=== PATIENT | female | born 1980 | race Caucasian/White ===

== ENCOUNTER → 2018-06-17 11:38 | Outpatient (CLI) | payer OTHER, SELFPAY | PROVIDERS: Visit Provider Physician Assistant | DX: N30.90 Cystitis, unspecified without hematuria (principal) | CPT/HCPCS: 87086 ==

== ENCOUNTER → 2019-07-26 11:55 | Outpatient (CLI) | payer OTHER, SELFPAY | DX: Z23 Encounter for immunization (principal) | CPT/HCPCS: 90471; 90686 ==

== ENCOUNTER 2020-04-01 16:10 | Emergency (ER) | payer OTHER, SELFPAY ==
[2020-04-01 16:14] VITALS: BP 161/91; PULSE 85; RESP 20; TEMP 36.6; O2SAT 99
[2020-04-01] MEDS: TET,DIPH,PERTUSS(ACELL),VAC/PF 0.5 ML SYRINGE IM (17:40)
--- NOTE | 2020-04-01 17:49 | ED_ITS ---
HPI - General Adult <MARI Real - Last Filed: 04/01/20 21:21> General Chief complaint: Environmental Exposure Stated complaint: needle stick Time Seen by Provider: 04/01/20 17:05 Source: patient Mode of arrival: Ambulatory History of Present Illness HPI narrative: 39yo female presents to the emergency department for a work- related needle stick. She states she was giving insulin to a patient who has known hepatitis-C, the insulin was 2 units and the injection was basically complete but the needle punctured through the skin of the patient which then punctured the nurse's glove and resulted in a superficial puncture of her skin of finger tip. She denies any insulin injection with a puncture. Patient denies any history of medical issues such as hepatitis or HIV. She states she is unsure of last Tdap. Patient denies any other symptoms such as fevers, chills, nausea, vomiting, diarrhea, or other concerns. Patient states she irrigated the wound extensively after incident and wash her hands with soap and water. Related Data Previous Rx's Medication Instructions Recorded dolutegravir 50 mg PO DAILY 10 Days #10 tab 04/01/20 emtricitabine-tenofovir (TDF) 1 tab PO DAILY 10 Days #10 tab 04/01/20 [Truvada] ondansetron 4 mg PO Q6H PRN #10 tab 04/01/20 Allergies Allergy/AdvReac Type Severity Reaction Status Date / Time No Known Drug Allergies Allergy Unverified 06/17/18 10:47 Review of Systems <MARI Real - Last Filed: 04/01/20 21:21> Review of Systems Narrative: REVIEW OF SYSTEMS: GENERAL: Denies fever or chills. HENT: Denies head trauma. EYE: Denies double vision or vision loss. CARDIOVASCULAR: Denies syncope. MUSCULOSKELETAL: Denies weakness, or deformities. INTEGUMENTARY: Complains of puncture wound to finger, see HPI. NEURO: Denies numbness or tingling. Patient History <MARI Real - Last Filed: 04/01/20 21:21> Medical History No significant medical problems (Acute) Social History Smoking Status: Never smoker Smoking Status: Never smoker Exam <MARI Real - Last Filed: 04/01/20 21:21> Initial Vital Signs Initial Vital Signs: Vital Signs Temperature 97.9 F 04/01/20 16:14 Pulse Rate 85 04/01/20 16:14 Respiratory Rate 20 04/01/20 16:14 Blood Pressure 161/91 H 04/01/20 16:14 Pulse Oximetry 99 04/01/20 16:14 PHYSICAL EXAMINATION: GENERAL: Well groomed, alert, and cooperative. Answers questions promptly and appropriately. Vital signs noted. HENT: Normocephalic, atraumatic. RESPIRATORY: Normal respiratory rate, trachea midline, airway patent. No stridor, nasal flaring or accessory muscle use. MUSCULOSKELETAL: Normal gait and coordination. Equal tone and mass bilaterally. EXTREMITIES: CMS intact. Moves all extremities. SKIN: Warm, dry, soft, appropriate color for ethnicity. Small puncture wound seen to the middle of left index finger. No bleeding, ecchymosis, or erythema. NEURO: Alert and Oriented X 3. Good coordination. PSYCH: Appropriate affect and mood. <Thanh Goddard DO - Last Filed: 04/01/20 21:43> Initial Vital Signs Initial Vital Signs: Vital Signs Temperature 97.9 F 04/01/20 16:14 Pulse Rate 85 04/01/20 16:14 Respiratory Rate 20 04/01/20 16:14 Blood Pressure 161/91 H 04/01/20 16:14 Pulse Oximetry 99 04/01/20 16:14 Course <MARI Real - Last Filed: 04/01/20 21:21> Course Course Narrative: Medication was given via pre packs from [facility] given patient is an employee.. I discussed with patient testing for hepatitis-B, C, and HIV. Patient consented. Was discussed with patient prophylactic treatment of HIV, PEP today. Pharmacy was contacted. Orders Ordered: ED Orders 04/01/20 17:58 HIV 1 & 2 Ab/Ag 4th Gen Combo Stat Hepatic (Liver) Panel Stat Hepatitis C Virus Antibody Stat 04/01/20 18:14 Complete Blood Count AUTO DIFF Stat Comprehensive Metabolic Panel Stat Discontinued Medications Diphtheria/Tetanus/Acell Pertussis (Adacel) 0.5 ml IM .ONCE ONE Stop: 04/01/20 17:16 Last Admin: 04/01/20 17:40 Dose: 0.5 ml Documented by: RENEE Dolutegravir Sodium (Tivicay) 50 mg PO NOW ONE Stop: 04/01/20 18:05 Dolutegravir Sodium (Tivicay Prepack) 1 prepack MISC SEEINSTR ONE Stop: 04/01/20 18:58 Emtricitabine/Tenofovir (Truvada 200 Mg-300 Mg Tablet) 1 each PO NOW ONE Stop: 04/01/20 18:05 Emtricitabine/Tenofovir (Truvada Prepack) 1 prepack MISC SEEINSTR ONE Stop: 04/01/20 18:58 Ondansetron HCl (Zofran Odt) 4 mg SL NOW ONE Stop: 04/01/20 18:05 Last Admin: 04/01/20 19:20 Dose: 4 mg Documented by: RENEE Vital Signs Vital signs: Vital Signs - 8 hr 04/01/20 16:14 Temperature 97.9 F Pulse Rate 85 Respiratory Rate 20 Blood Pressure 161/91 H Pulse Oximetry 99 <Thanh Goddard DO - Last Filed: 04/01/20 21:43> Orders Ordered: ED Orders 04/01/20 17:58 HIV 1 & 2 Ab/Ag 4th Gen Combo Stat Hepatic (Liver) Panel Stat Hepatitis C Virus Antibody Stat 04/01/20 18:14 Complete Blood Count AUTO DIFF Stat Comprehensive Metabolic Panel Stat Discontinued Medications Diphtheria/Tetanus/Acell Pertussis (Adacel) 0.5 ml IM .ONCE ONE Stop: 04/01/20 17:16 Last Admin: 04/01/20 17:40 Dose: 0.5 ml Documented by: RENEE Dolutegravir Sodium (Tivicay) 50 mg PO NOW ONE Stop: 04/01/20 18:05 Dolutegravir Sodium (Tivicay Prepack) 1 prepack MISC SEEINSTR ONE Stop: 04/01/20 18:58 Emtricitabine/Tenofovir (Truvada 200 Mg-300 Mg Tablet) 1 each PO NOW ONE Stop: 04/01/20 18:05 Emtricitabine/Tenofovir (Truvada Prepack) 1 prepack MISC SEEINSTR ONE Stop: 04/01/20 18:58 Ondansetron HCl (Zofran Odt) 4 mg SL NOW ONE Stop: 04/01/20 18:05 Last Admin: 04/01/20 19:20 Dose: 4 mg Documented by: RENEE Vital Signs Vital signs: Vital Signs - 8 hr 04/01/20 16:14 Temperature 97.9 F Pulse Rate 85 Respiratory Rate 20 Blood Pressure 161/91 H Pulse Oximetry 99 Medical Decision Making <MARI Real - Last Filed: 04/01/20 21:21> Medical Records Medical records reviewed: Yes I reviewed the patient's medical records. Lab Data Lab results reviewed: Yes I reviewed the patient's lab results. Result diagrams: 04/01/20 18:14 04/01/20 18:14 Labs: Lab Results 04/01/20 04/01/20 04/01/20 Range/Units 17:58 17:58 18:14 WBC 11.0 (4.5-11.0) X10^3/uL RBC 4.79 (4.0-5.2) X10^6/uL Hgb 14.1 (12.0-16.0) g/dL Hct 42.1 (36-46) % MCV 87.9 (80-100) fL MCH 29.4 (26-34) PG MCHC 33.4 (30-36) % RDW 12.6 (11.6-14.8) % Plt Count 411 H (150-400) X10^3/uL Neut % (Auto) 64.6 (50-75) % Lymph % (Auto) 25.1 (25-40) % Sanders % (Auto) 6.2 (3-14) % Eos % (Auto) 3.5 (2-4) % Baso % (Auto) 0.6 (0-2) % Neut # (Auto) 7100 H (4274-2311) /uL Lymph # (Auto) 2800 (0600-2951) /uL Sanders # (Auto) 700 (0-900) /uL Eos # (Auto) 400 (0-450) /uL Baso # (Auto) 100 (0-100) /uL Sodium (137-145) mmol/L Potassium (3.4-5.1) mmol/L Chloride (98-107) mmol/L Carbon Dioxide (22-32) mmol/L BUN (7-17) mg/dL Creatinine (0.52-1.04) mg/dL Estimated GFR (>60) mL/min BUN/Creatinine Ratio (6-22) Glucose (70-100) mg/dL Calcium (8.4-10.2) mg/dL Total Bilirubin 0.5 (0.2-1.3) mg/dL Conjugated Bilirubin 0.0 (0.0-0.3) md/dL Unconjugated Bilirubin 0.4 (0.0-1.1) mg/dL AST 27 (14-36) IU/L ALT 19 (<35) IU/L Alkaline Phosphatase 79 (38-126) U/L Total Protein 7.9 (6.3-8.2) g/dL Albumin 4.5 (3.5-5.0) g/dL Globulin 3.4 (1.7-4.1) g/dL Albumin/Globulin Ratio 1.3 (1.0-2.8) Hepatitis C Antibody Negative (NEGATIVE) s/c HIV 1&2 Ab/P24 Ag 4thGn Negative (NEGATIVE) 04/01/ Range/Units 18:14 WBC (4.5-11.0) X10^3/uL RBC (4.0-5.2) X10^6/uL Hgb (12.0-16.0) g/dL Hct (36-46) % MCV (80-100) fL MCH (26-34) PG MCHC (30-36) % RDW (11.6-14.8) % Plt Count (150-400) X10^3/uL Neut % (Auto) (50-75) % Lymph % (Auto) (25-40) % Sanders % (Auto) (3-14) % Eos % (Auto) (2-4) % Baso % (Auto) (0-2) % Neut # (Auto) (0585-0788) /uL Lymph # (Auto) (7665-8276) /uL Sanders # (Auto) (0-900) /uL Eos # (Auto) (0-450) /uL Baso # (Auto) (0-100) /uL Sodium 138 (137-145) mmol/L Potassium 3.8 (3.4-5.1) mmol/L Chloride 103 (98-107) mmol/L Carbon Dioxide 25 (22-32) mmol/L BUN 12 (7-17) mg/dL Creatinine 0.67 (0.52-1.04) mg/dL Estimated GFR > 60.0 (>60) mL/min BUN/Creatinine Ratio 17.9 (6-22) Glucose 94 (70-100) mg/dL Calcium 9.2 (8.4-10.2) mg/dL Total Bilirubin 0.6 (0.2-1.3) mg/dL Conjugated Bilirubin (0.0-0.3) md/dL Unconjugated Bilirubin (0.0-1.1) mg/dL AST 29 (14-36) IU/L ALT 20 (<35) IU/L Alkaline Phosphatase 78 (38-126) U/L Total Protein 8.4 H (6.3-8.2) g/dL Albumin 4.7 (3.5-5.0) g/dL Globulin 3.7 (1.7-4.1) g/dL Albumin/Globulin Ratio 1.3 (1.0-2.8) Hepatitis C Antibody (NEGATIVE) s/c HIV 1&2 Ab/P24 Ag 4thGn (NEGATIVE) Point of Care Testing Test Results Negative Point of care testing: Point of Care Testing Test Results Negative MDM Narrative Medical decision making narrative: History and examination reveal a 39-year-old female who suffered a subcutaneous needle stick during administration of insulin. Source patient has known hepatitis-C. Unknown hepatitis-B or HIV status of source patient. Current patient without history of hepatitis or HIV. Tdap was updated, patient reported up-to-date hepatitis-B vaccinations. Patient requesting PEP, prescriptions order per protocol after negative test. Patient was counseled extensively to follow-up with employee health, call them tomorrow to schedule follow-up. Return precautions were given for new or worsening symptoms. Patient agreed to plan of care verbalized understanding. <Thanh Goddard, DO - Last Filed: 04/01/20 21:43> Lab Data Labs: Lab Results 04/01/20 04/01/20 04/01/20 Range/Units 17:58 17:58 18:14 WBC 11.0 (4.5-11.0) X10^3/uL RBC 4.79 (4.0-5.2) X10^6/uL Hgb 14.1 (12.0-16.0) g/dL Hct 42.1 (36-46) % MCV 87.9 (80-100) fL MCH 29.4 (26-34) PG MCHC 33.4 (30-36) % RDW 12.6 (11.6-14.8) % Plt Count 411 H (150-400) X10^3/uL Neut % (Auto) 64.6 (50-75) % Lymph % (Auto) 25.1 (25-40) % Sanders % (Auto) 6.2 (3-14) % Eos % (Auto) 3.5 (2-4) % Baso % (Auto) 0.6 (0-2) % Neut # (Auto) 7100 H (5010-8754) /uL Lymph # (Auto) 2800 (2654-2875) /uL Sanders # (Auto) 700 (0-900) /uL Eos # (Auto) 400 (0-450) /uL Baso # (Auto) 100 (0-100) /uL Sodium (137-145) mmol/L Potassium (3.4-5.1) mmol/L Chloride (98-107) mmol/L Carbon Dioxide (22-32) mmol/L BUN (7-17) mg/dL Creatinine (0.52-1.04) mg/dL Estimated GFR (>60) mL/min BUN/Creatinine Ratio (6-22) Glucose (70-100) mg/dL Calcium (8.4-10.2) mg/dL Total Bilirubin 0.5 (0.2-1.3) mg/dL Conjugated Bilirubin 0.0 (0.0-0.3) md/dL Unconjugated Bilirubin 0.4 (0.0-1.1) mg/dL AST 27 (14-36) IU/L ALT 19 (<35) IU/L Alkaline Phosphatase 79 (38-126) U/L Total Protein 7.9 (6.3-8.2) g/dL Albumin 4.5 (3.5-5.0) g/dL Globulin 3.4 (1.7-4.1) g/dL Albumin/Globulin Ratio 1.3 (1.0-2.8) Hepatitis C Antibody Negative (NEGATIVE) s/c HIV 1&2 Ab/P24 Ag 4thGn Negative (NEGATIVE) 04/01/20 Range/Units 18:14 WBC (4.5-11.0) X10^3/uL RBC (4.0-5.2) X10^6/uL Hgb (12.0-16.0) g/dL Hct (36-46) % MCV (80-100) fL MCH (26-34) PG MCHC (30-36) % RDW (11.6-14.8) % Plt Count (150-400) X10^3/uL Neut % (Auto) (50-75) % Lymph % (Auto) (25-40) % Sanders % (Auto) (3-14) % Eos % (Auto) (2-4) % Baso % (Auto) (0-2) % Neut # (Auto) (6973-2082) /uL Lymph # (Auto) (5513-7639) /uL Sanders # (Auto) (0-900) /uL Eos # (Auto) (0-450) /uL Baso # (Auto) (0-100) /uL Sodium 138 (137-145) mmol/L Potassium 3.8 (3.4-5.1) mmol/L Chloride 103 (98-107) mmol/L Carbon Dioxide 25 (22-32) mmol/L BUN 12 (7-17) mg/dL Creatinine 0.67 (0.52-1.04) mg/dL Estimated GFR > 60.0 (>60) mL/min BUN/Creatinine Ratio 17.9 (6-22) Glucose 94 (70-100) mg/dL Calcium 9.2 (8.4-10.2) mg/dL Total Bilirubin 0.6 (0.2-1.3) mg/dL Conjugated Bilirubin (0.0-0.3) md/dL Unconjugated Bilirubin (0.0-1.1) mg/dL AST 29 (14-36) IU/L ALT 20 (<35) IU/L Alkaline Phosphatase 78 (38-126) U/L Total Protein 8.4 H (6.3-8.2) g/dL Albumin 4.7 (3.5-5.0) g/dL Globulin 3.7 (1.7-4.1) g/dL Albumin/Globulin Ratio 1.3 (1.0-2.8) Hepatitis C Antibody (NEGATIVE) s/c HIV 1&2 Ab/P24 Ag 4thGn (NEGATIVE) Point of Care Testing Test Results Negative Point of care testing: Point of Care Testing Test Results Negative Discharge Plan Departure Patient Disposition: Home Clinical Impression: Needle stick injury Discharge Date/Time: 04/01/20 19:35 Activity Restrictions/Additional Instructions: Thank you for entrusting me with your care today. As discussed, please call [facility] tomorrow to schedule a follow-up appointment. I have started you on post exposure prophylaxis therapy for HIV, you may discontinue that went source patient has tested negative for HIV, if the patient is positive, you will need to continue these for 28 days. I have given you a script for 10 days is these medications can be expensive and the additional regimen can be continued if patient is confirmed positive. These medications can make you nauseated, I prescribed you ondansetron for this. These medications were sent to [facility] in [place]. Please return emergency department for any new or worsening symptoms. Prescriptions: New Truvada 200-300 mg tablet 1 tab PO DAILY 10 Days Qty: 10 RF: 0 dolutegravir 50 mg tablet 50 mg PO DAILY 10 Days Qty: 10 RF: 0 ondansetron 4 mg tablet,disintegrating 4 mg PO Q6H PRN (Reason: nausea and vomiting) Qty: 10 RF: 0 Referrals: Ny Cody MD [Primary Care Provider] - <Thanh Goddard, DO - Last Filed: 04/01/20 21:43> Cosign ED Attending Cosignature Attestation: Dr Goddard Co-Sign Statement: I was av ailable for consultation during this patient's emergency department visit. This chart is signed by myself for administrative purposes only. I did not have direct contact with this patient during this visit. They were seen independently by the APC.
[2020-04-01 18:24] LABS: Add Manual Diff / Slide Review NO; Basophils Absolute Auto 100 /uL (0-100); Basophils Percent Auto 0.6 % (0-2); Eosinophils Absolute Auto 400 /uL (0-450); Eosinophils Percent Auto 3.5 % (2-4); Hematocrit 42.1 % (36-46); Hemoglobin 14.1 g/dL (12.0-16.0); Lymphocytes Absolute Auto 2800 /uL (1100-4500); Lymphocytes Percent Auto 25.1 % (25-40); Mean Corpuscular HGB Conc 33.4 % (30-36); Mean Corpuscular Hemoglobin 29.4 PG (26-34); Mean Corpuscular Volume 87.9 fL (80-100); Monocytes Absolute Auto 700 /uL (0-900); Monocytes Percent Auto 6.2 % (3-14); Neutrophils Absolute Auto 7100 /uL (1500-7000); Neutrophils Percent Auto 64.6 % (50-75); Platelet Count 411 X10^3/uL (150-400); Red Blood Cell Count 4.79 X10^6/uL (4.0-5.2); Red Cell Distribution Width 12.6 % (11.6-14.8)
[2020-04-01 18:29] LABS: Alanine Aminotransferase 19 IU/L (<35); Albumin 4.5 g/dL (3.5-5.0); Albumin Globulin Ratio 1.3 (1.0-2.8); Alkaline Phosphatase 79 U/L (38-126); Aspartate Aminotransferase 27 IU/L (14-36); Bilirubin Total 0.5 mg/dL (0.2-1.3); Bilirubin Unconjugated 0.4 mg/dL (0.0-1.1); Globulin 3.4 g/dL (1.7-4.1); HEMOLYSIS < 15 (0-50); Total Protein 7.9 g/dL (6.3-8.2)
[2020-04-01 18:41] LABS: Alanine Aminotransferase 20 IU/L (<35); Albumin 4.7 g/dL (3.5-5.0); Albumin Globulin Ratio 1.3 (1.0-2.8); Alkaline Phosphatase 78 U/L (38-126); Aspartate Aminotransferase 29 IU/L (14-36); BUN Creatinine Ratio 17.9 (6-22); Bilirubin Total 0.6 mg/dL (0.2-1.3); Blood Urea Nitrogen 12 mg/dL (7-17); Calcium 9.2 mg/dL (8.4-10.2); Carbon Dioxide 25 mmol/L (22-32); Chloride 103 mmol/L (98-107); Estimated Glomerular Filt Rate > 60.0 mL/min (>60); Globulin 3.7 g/dL (1.7-4.1); Glucose 94 mg/dL (70-100); HEMOLYSIS 21 (0-50); Potassium 3.8 mmol/L (3.4-5.1); Sodium 138 mmol/L (137-145); Total Protein 8.4 g/dL (6.3-8.2)
[2020-04-01] MEDS: ONDANSETRON 4 MG ODT SL (19:20)
[2020-04-01 19:37] LABS: HIV 1 & 2 Ab/Ag 4th Gen Combo NEGATIVE (NEGATIVE); Hep C Virus Ab w/Reflex Quant NEGATIVE s/c (NEGATIVE)
[2020-04-03 07:36] LABS: Hepatitis B Surf Ab Qualitativ Reactive (.)
== END 2020-04-01 19:35 | disposition home or self-care (01) ==
PROVIDERS: Emergency Provider Nurse Practitioner; PCP Student in an Organized Health Care Education/Training Program
DX: Z77.21 Contact with and (suspected) exposure to potentially hazardous body fluids (principal); Y99.0 Civilian activity done for income or pay; Z23 Encounter for immunization
CPT/HCPCS: 36415; 80053; 80076; 81025; 85025; 86706; 86803; 87389; 90471; 99283; 90715; A9270

== ENCOUNTER → 2020-05-05 08:08 | Outpatient (CLI) | payer OTHER, SELFPAY ==
--- NOTE | 2020-05-05 | DI.US.S_ITS ---
PROCEDURE: US PELVIC COMPLETE INDICATIONS: PELVIC MASS TECHNIQUE: Real-time scanning was performed of the pelvic organs, with image documentation. Additional endovaginal scanning was necessary due to incomplete visualization of the adnexal and endometrial structures by transabdominal scanning. COMPARISON: None. FINDINGS: Transabdominal scanning: Limited scanning through the kidneys shows no hydronephrosis. No pathologic free abdominal or pelvic fluid. Endovaginal scanning: Uterus: The uterus is enlarged measuring 19.7 x 13.4 x 16.3 cm. The endometrial stripe is not seen. There is a posterior intramural fibroid seen inferiorly that measures 9 x 6.7 x 7.7 cm. Ovaries: The right ovary measures 3.2 x 3.1 x 3.5 cm. Within the right ovary, there are 2 complex cysts, which measure up to 2.4 cm and up to 2.2 cm, respectively. The left ovary is not seen. No adnexal masses can be seen on either side. IMPRESSION: Enlarged uterus, with a prominent fibroid seen posteriorly that measures up to 9 cm. Abnormal right ovary, with 2 complex cysts seen within it. These most likely represent hemorrhagic cysts. At clinical discretion, a followup pelvic ultrasound is suggested in 6 weeks to assure resolution/ improvement. Nonvisualization of the left ovary. No adnexal masses are seen. Dictated by: Chandler Wu M.D. on 05/05/2020 at 9:59 Approved by: Chandler Wu M.D. on 05/05/2020 at 10:00
== END ==
PROVIDERS: PCP Student in an Organized Health Care Education/Training Program; Referring Provider Student in an Organized Health Care Education/Training Program; Visit Provider Student in an Organized Health Care Education/Training Program
DX: D25.1 Intramural leiomyoma of uterus (principal); N85.2 Hypertrophy of uterus; N83.291 Other ovarian cyst, right side
CPT/HCPCS: 76830; 76856

== ENCOUNTER → 2020-05-22 | Outpatient (CLI) | payer OTHER, SELFPAY | PROVIDERS: PCP Student in an Organized Health Care Education/Training Program; Referring Provider Internal Medicine; Visit Provider Internal Medicine | DX: Z23 Encounter for immunization (principal) | CPT/HCPCS: 90471; 90686 ==

== ENCOUNTER → 2020-06-16 10:42 | Outpatient (CLI) | payer OTHER, SELFPAY ==
--- NOTE | 2020-06-16 | DI.US.S_ITS ---
PROCEDURE: US PELVIC COMPLETE INDICATIONS: 6 week follow up TECHNIQUE: Real-time scanning was performed of the pelvic organs, with image documentation. Additional endovaginal scanning was necessary due to incomplete visualization of the adnexal and endometrial structures by transabdominal scanning. COMPARISON: [facility], , US PELVIC COMPLETE, 05/05/2020, 8:34. FINDINGS: Transabdominal scanning: Limited scanning through the kidneys shows no hydronephrosis. No pathologic free abdominal or pelvic fluid. Endovaginal scanning: Uterus: Uterus is enlarged in size at 8.0 x 16.0 x 20.2 cm. The endometrium cannot be visualized as a discrete structure due to distortion by multiple superimposed uterine fibroids. Multiple fibroids are present the largest of which measures 12.6 x 11.4 x 9.0 cm centered on the right at the anterior aspect of the uterus but also extending contiguously into the posterior 3rd. The exact boundaries of the fibroid versus normal myometrium is distorted and difficult to delineate.. Ovaries: The right ovary measures 2.5 x 3.3 x 4.2 cm and the left measures 2.7 x 1.8 x 3.4 cm. IMPRESSION: No ovarian cysts are seen at the right ovary. Previously present complex cysts in that area have resolved. The quality of visualization of the uterus is very limited due to a dominant large presumed fibroid, and the endometrial lining could not be visualized accurately. Depending on the clinical status follow-up by pelvic MRI may be warranted. The presence or absence of an endometrial neoplasm would not be accurately detected by this examination. Dictated by: Chi Umana M.D. on 06/16/2020 at 13:54 Approved by: Chi Umana M.D. on 06/16/2020 at 14:13
== END ==
PROVIDERS: PCP Student in an Organized Health Care Education/Training Program; Referring Provider Student in an Organized Health Care Education/Training Program; Visit Provider Student in an Organized Health Care Education/Training Program
DX: N83.201 Unspecified ovarian cyst, right side (principal); D25.9 Leiomyoma of uterus, unspecified
CPT/HCPCS: 76830; 76856

== ENCOUNTER → 2020-07-02 15:28 | Outpatient (CLI) | payer OTHER, SELFPAY ==
--- NOTE | 2020-07-02 | DI.MRI.S_ITS ---
PROCEDURE: MR PELVIS WO/W CON INDICATIONS: Leiomyoma of uterus, unspecified TECHNIQUE: Coronal HASTE, sagittal breath-hold T2 FSE; axial T1 FSE with and without fat saturation through the pelvis. Optional long- and short-axis uterine nonbreath-hold T2 FSE through the uterus. Sagittal or axial dynamic VIBE during administration of contrast. Post-contrast axial or coronal VIBE/2-D FLASH with fat saturation from the iliac crests to the symphysis. Optional diffusion weighted imaging and ADC may be performed. COMPARISON: [facility], US, US PELVIC COMPLETE, 06/16/2020, 10:53. FINDINGS: Image quality: Excellent. Uterus: Anteverted uterus is massively enlarged with several fibroids measuring 20.1 x 15.8 x 13.8 cm. Uterus extends to the level of the umbilicus. No suspicious enhancement or restricted diffusion. For example: -Large anterior fundal intramural fibroid measuring 15.8 x 15.2 x 10.2 cm. -Large intramural fibroid posterior lower uterine segment measures 8.8 x 8.2 x 7.8 cm. Endometrium is normal in thickness measuring 0.9 cm. Junctional zone is normal in thickness at 12 mm or less. Adnexa: Both ovaries are normal in size, without suspicious cystic or solid lesions. Granulated left ovarian cyst most compatible with a corpus luteum or resolving hemorrhagic cyst. Small ovarian follicles. Urinary system: Bladder is decompressed. Distal ureters are non distended. Nodes and vessels: No pelvic or inguinal adenopathy by size criteria. Iliac vessels are normal in size. Bowel and peritoneum: Trace physiologic fluid. Inferior colon and small bowel loops are normal in caliber. Soft tissues: No inguinal hernias. No findings of pelvic floor incompetence in the absence of provocation. Bones: Marrow demonstrates normal overall signal. IMPRESSION: 1. Massively enlarged fibroid uterus extending to the level of the umbilicus measuring 20.1 cm. 2. Ovaries are within normal limits. No suspicious mass. 3. No endometrial thickening. Dictated by: Obi Perales M.D. on 07/02/2020 at 17:05 Approved by: Obi Perales M.D. on 07/02/2020 at 17:17
== END ==
PROVIDERS: PCP Student in an Organized Health Care Education/Training Program; Referring Provider Student in an Organized Health Care Education/Training Program; Visit Provider Student in an Organized Health Care Education/Training Program
DX: D25.1 Intramural leiomyoma of uterus (principal)
CPT/HCPCS: 72197; A9579

== ENCOUNTER → 2020-08-14 09:08 | Outpatient (CLI) | payer OTHER, SELFPAY ==
[2020-08-14] MEDS: COVID-19 VACC(MODERNA-1)/PF 100 MCG/0.5 ML VIAL IM (09:22)
== END ==
PROVIDERS: PCP Student in an Organized Health Care Education/Training Program; Visit Provider Internal Medicine
DX: Z23 Encounter for immunization (principal)
CPT/HCPCS: 0011A; 91301

== ENCOUNTER → 2020-09-10 09:08 | Outpatient (CLI) | payer OTHER, SELFPAY ==
[2020-09-10] MEDS: COVID-19 VACC #2, MRNA(MOD) 100 MCG/0.5 ML VIAL IM (09:14)
== END ==
PROVIDERS: PCP Student in an Organized Health Care Education/Training Program; Visit Provider Internal Medicine
DX: Z23 Encounter for immunization (principal)
CPT/HCPCS: 0012A; 91301

== ENCOUNTER → 2021-04-15 13:12 | Outpatient (CLI) | payer OTHER, SELFPAY ==
[2021-04-15 14:13] LABS: COVID19 -Nasal RAPID Negative (Negative)
== END ==
PROVIDERS: PCP Student in an Organized Health Care Education/Training Program; Visit Provider Specialist
DX: Z01.812 Encounter for preprocedural laboratory examination (principal); Z20.822 Contact with and (suspected) exposure to COVID-19
CPT/HCPCS: 87635; C9803

== ENCOUNTER → 2021-06-08 13:41 | Outpatient (CLI) | payer OTHER, SELFPAY | PROVIDERS: PCP Student in an Organized Health Care Education/Training Program; Referring Provider Internal Medicine; Visit Provider Internal Medicine | DX: Z23 Encounter for immunization (principal) | CPT/HCPCS: 90471; 90686 ==

== ENCOUNTER → 2021-06-19 08:21 | Outpatient (CLI) | payer OTHER, SELFPAY ==
[2021-06-19] MEDS: COVID-19 VACC #3, MRNA(MOD) 50 MCG/0.25 ML VIAL IM (08:25)
== END ==
PROVIDERS: PCP Student in an Organized Health Care Education/Training Program; Visit Provider Internal Medicine
DX: Z23 Encounter for immunization (principal)
CPT/HCPCS: 0013A; 91301

== ENCOUNTER → 2022-04-02 15:37 | Outpatient (CLI) | payer OTHER, SELFPAY ==
--- NOTE | 2022-04-02 | DI.CT.S_ITS ---
PROCEDURE: CT SINUS SCREEN WO CON INDICATIONS: Anosmia/chronic pansinusitis/headache TECHNIQUE: Noncontrast 3.0 mm axial images acquired from the frontal sinuses to the mid-sella, with coronal and sagittal reformats. For radiation dose reduction, the following was used: automated exposure control, adjustment of mA and/or kV according to patient size. COMPARISON: None. FINDINGS: Image quality: Excellent. Maxillary Sinuses: There is at least moderate left-sided and moderate right-sided mucosal thickening seen. There is demineralization of the medial simon of the maxillary sinuses. Ethmoid Air Cells: There is moderate to prominent costal thickening seen within the ethmoid air cells. The simon of the ethmoid air cells are demineralized. Sphenoid Sinuses: There is moderate mucosal thickening seen within both sphenoid sinuses. No definite bony remodeling change can be seen. Frontal Sinuses: No bony remodeling or destruction. [id number] mucosal thickening is seen within the inferior medial frontal sinuses. Ostiomeatal Complexes: The ostiomeatal complexes are nearly completely opacified and are demineralized. Miscellaneous: Visualized intra-orbital contents are normal. There is a large right-sided ricardo bullosa is seen, with complete opacification. Mild abnormal soft tissue can be seen within the superior nasal cavity. There is [id number] leftward nasal septal deviation. IMPRESSION: Widespread paranasal sinus disease can be seen. Areas of bony remodeling/demineralization are seen, which are consistent with chronic sinusitis. There is a large right ricardo bullosa, which is opacified with soft tissue. There is associated [id number] leftward nasal septal deviation. Abnormal soft tissue can be seen within the upper nasal cavity, which is attributed to polyp disease. Dictated by: Chandler Wu M.D. on 04/02/2022 at 14:55 Approved by: Chandler Wu M.D. on 04/02/2022 at 14:58
== END ==
PROVIDERS: PCP Student in an Organized Health Care Education/Training Program; Referring Provider Otolaryngology; Visit Provider Otolaryngology
DX: J32.4 Chronic pansinusitis (principal); R43.0 Anosmia; J34.89 Other specified disorders of nose and nasal sinuses; R51.9 Headache, unspecified; J34.2 Deviated nasal septum; J34.3 Hypertrophy of nasal turbinates
CPT/HCPCS: 70486

== ENCOUNTER → 2022-08-11 12:08 | Outpatient (CLI) | payer OTHER, SELFPAY | PROVIDERS: PCP Student in an Organized Health Care Education/Training Program; Referring Provider Internal Medicine; Visit Provider Internal Medicine | DX: Z23 Encounter for immunization (principal) | CPT/HCPCS: 90471; 90686 ==

== ENCOUNTER → 2023-03-10 14:03 | Outpatient (CLI) | payer OTHER, SELFPAY ==
--- NOTE | 2023-03-10 | DI.MG.S_ITS ---
BILATERAL DIGITAL SCREENING MAMMOGRAM 3D/2D WITH CAD: 03/10/2023 CLINICAL: Baseline exam. Routine screening. No prior exams were available for comparison. There are scattered areas of fibroglandular density in both breasts (category b / 25%-50% glandular tissue). Current study was also evaluated with a Computer Aided Detection (CAD) system. There is a 0.8 cm mass in the left breast at 2 o'clock posterior depth. No other significant masses, calcifications, or other findings are seen in either breast. IMPRESSION: INCOMPLETE: NEEDS ADDITIONAL IMAGING EVALUATION The 0.8 cm mass in the left breast resembles a cyst and is indeterminate. Additional views with possible ultrasound are recommended. Based on the Tyrer Cuzick model (a risk assessment model) the patient's lifetime risk is 10.3% and her 10 year risk is 1.3%. According to the ACR, ACS, and NCCN guidelines, an annual breast MRI exam along with mammogram is recommended if the patient's lifetime risk is 20% or greater. This exam was interpreted at Station ID: [id number]. NOTE: For mammograms, a report in lay terms will be sent to the patient. Approximately 15% of breast malignancies will not be visualized mammographically. In the management of a palpable breast mass, a negative mammogram must not discourage biopsy of a clinically suspicious lesion. Electronically Signed By: Obi Perales M.D. [facility] [place]03/10/2023 16:52:18 letter sent: Additional Imaging Needed ACR BI-RADS Category 0: Incomplete [id number]
== END ==
PROVIDERS: PCP Internal Medicine; Referring Provider Internal Medicine; Visit Provider Internal Medicine
DX: Z12.31 Encounter for screening mammogram for malignant neoplasm of breast (principal)
CPT/HCPCS: 77063; 77067

== ENCOUNTER → 2023-03-31 08:51 | Outpatient (CLI) | payer OTHER, SELFPAY ==
--- NOTE | 2023-03-31 | DI.MG.S_ITS ---
UNILATERAL LEFT DIGITAL DIAGNOSTIC MAMMOGRAM 3D/2D WITH ADDITIONAL VIEWS: 03/31/2023 CLINICAL: Additional evaluation requested from prior study. Comparison is made to exam dated: 03/10/2023 mammogram - [facility]. There are scattered areas of fibroglandular density in the left breast (category b / 25%-50% glandular tissue). There is a 9 mm oval mass with a circumscribed margin in the left breast upper outer quadrant posterior depth. This finding corresponds to mass seen on baseline screening mammogram. There is an additional oval mass with a circumscribed margin seen in the left axillary tail. No other significant masses or calcifications are seen in the breast. IMPRESSION: INCOMPLETE: NEEDS ADDITIONAL IMAGING EVALUATION 1) Left upper outer quadrant 9 mm oval circumscribed mass. Recommend additional evaluation with targeted left breast ultrasound which will immediately follow this exam. 2) Left low axillary probable lymph node. Recommend further evaluation with targeted left breast ultrasound which will immediately follow this exam. Based on the Tyrer Cuzick model (a risk assessment model) the patient's lifetime risk is 10.3% and her 10 year risk is 1.3%. According to the ACR, ACS, and NCCN guidelines, an annual breast MRI exam along with mammogram is recommended if the patient's lifetime risk is 20% or greater. This exam was interpreted at Station ID: [id number]. NOTE: For mammograms, a report in lay terms will be sent to the patient. Approximately 15% of breast malignancies will not be visualized mammographically. In the management of a palpable breast mass, a negative mammogram must not discourage biopsy of a clinically suspicious lesion. Electronically Signed By: Amber Cruz M.D. [facility]/:03/31/2023 16:15:58 ACR BI-RADS Category 0: Incomplete 3340F
--- NOTE | 2023-03-31 | DI.US.S_ITS ---
LIMITED ULTRASOUND OF LEFT BREAST AND AXILLA: 03/31/2023 CLINICAL: Patient returns today to evaluate a focal asymmetry in the left breast. Comparison is made to exams dated: 03/31/2023 mammogram and 03/10/2023 mammogram - [facility]. Color flow and real-time ultrasound of the left breast 2 o'clock, and axilla regions were performed. There is a 7 mm x 6 mm x 8 mm oval mass with a circumscribed margin in the left breast at 2 o'clock, 10 cm from the nipple. This mass corresponds to mass seen on baseline screening mammogram. There also is a normal appearing lymph node in the left axilla corresponding to probable lymph node seen in the axillary tail on today's mammogram. IMPRESSION: PROBABLY BENIGN 1) Left breast oval circumscribed mass at 2 o'clock position. Finding is probably benign. Recommend Left breast ultrasound in 6 months. 2) Benign low axillary lymph node. This exam was interpreted at Station ID: [id number]. Electronically Signed By: Amber blandon/:03/31/2023 16:22:31 letter sent: Followup Recommended Ultrasound BI-RADS: 3 Probably benign
== END ==
PROVIDERS: PCP Internal Medicine; Referring Provider Internal Medicine; Visit Provider Internal Medicine
DX: N63.21 Unspecified lump in the left breast, upper outer quadrant (principal); R92.8 Other abnormal and inconclusive findings on diagnostic imaging of breast
CPT/HCPCS: 76642; 77065; G0279

== ENCOUNTER → 2023-06-19 12:05 | Outpatient (CLI) | payer OTHER, SELFPAY | PROVIDERS: PCP Internal Medicine; Referring Provider Family Medicine; Visit Provider Family Medicine | DX: Z23 Encounter for immunization (principal) | CPT/HCPCS: 90471; 90686 ==

== ENCOUNTER → 2023-12-23 11:16 | Outpatient (CLI) | payer OTHER, SELFPAY ==
--- NOTE | 2023-12-23 11:17 | DI.US.S_ITS ---
LIMITED SECONDLOOK ULTRASOUND OF LEFT BREAST: 12/23/2023 CLINICAL: Patient returns for additional imaging over a suspected mass in the left breast. Follow up from addtional views. Comparison is made to exams dated: 03/10/2023 mammogram, 03/31/2023 mammogram, and 03/31/2023 ultrasound - [facility]. Color flow real-time ultrasound of the left breast 2 o'clock region were performed. Phillips scale images of the real-time examination were reviewed. There is a 0.7 cm x 0.6 cm x 0.5 cm oval mass with a circumscribed margin in the left breast at 2 o'clock posterior depth 10 cm from the nipple. IMPRESSION: PROBABLY BENIGN The 0.7 cm mass in the left breast is probably benign. A follow-up ultrasound in 6 months is recommended to demonstrate stability. Recommend mammograms at that time. Exam findings were conveyed to the patient. This exam was interpreted at Station ID: [id number]. Electronically Signed By: Obi Perales M.D. [facility]/:12/23/2023 12:05:00 Entry: - 12/27/2023 09:40:04 letter sent: Followup Recommended Ultrasound BI-RADS: 3 Probably benign
== END ==
PROVIDERS: PCP Internal Medicine; Referring Provider Family Medicine; Visit Provider Family Medicine
DX: R92.8 Other abnormal and inconclusive findings on diagnostic imaging of breast (principal); N63.22 Unspecified lump in the left breast, upper inner quadrant
CPT/HCPCS: 76642

== ENCOUNTER → 2024-05-18 16:03 | Outpatient (CLI) | payer OTHER, SELFPAY | PROVIDERS: PCP Internal Medicine; Referring Provider Internal Medicine; Visit Provider Internal Medicine | DX: Z23 Encounter for immunization (principal) | CPT/HCPCS: 90471; 90656 ==

== ENCOUNTER → 2024-12-20 14:32 | Outpatient (CLI) | payer OTHER, SELFPAY ==
--- NOTE | 2024-12-20 14:33 | DI.MG.S_ITS ---
MM screening mammo BI: 12/20/2024. BI-RADS: 1 CLINICAL: 44-year old female for bilateral screening mammogram. Tyrer-Cuzick lifetime risk of 7.2%. No personal or first-degree family history of breast cancer. PRIOR EXAMS 12/23/2023, 03/31/2023, 03/10/2023. MAMMOGRAPHY TECHNIQUE: 2D and 3D (tomosynthesis) digital mammographic views obtained, with additional images as needed for full coverage. Current study was also evaluated with a Computer Aided Detection (CAD) system. DENSITY B. There are scattered areas of fibroglandular density. MAMMOGRAPHY FINDINGS Bilateral: No suspicious mass, asymmetry, microcalcification, or other abnormality seen. IMPRESSION: * No evidence of malignancy. RECOMMENDATIONS Bilateral * Annual screening mammography. OVERALL ASSESSMENT CATEGORY BI-RADS-1: Negative. The [employer] recommends annual screening mammography beginning at age 40 for women with average risk of breast cancer. ELECTRONICALLY SIGNED: Obi Perales M.D. on 12/20/2024 at 03:33:10 PM PT Interpreting Station ID: [id number]
== END ==
LOC: MAMMO 14:32
PROVIDERS: PCP Family Medicine; Referring Provider Family Medicine; Visit Provider Family Medicine
DX: Z12.31 Encounter for screening mammogram for malignant neoplasm of breast (principal)
CPT/HCPCS: 77063; 77067

== ENCOUNTER → 2024-12-20 14:33 | Outpatient (CLI) | payer OTHER, SELFPAY ==
--- NOTE | 2024-12-20 14:34 | DI.CT.S_ITS ---
PROCEDURE: CT SINUS SCREEN WO CON INDICATIONS: CHRONIC PANSINUSITIS,NASAL POLYPOSIS,ANOSMIA TECHNIQUE: Noncontrast 3.0 mm axial images acquired from the frontal sinuses to the mid-sella, with coronal and sagittal reformats. For radiation dose reduction, the following was used: automated exposure control, adjustment of mA and/or kV according to patient size. COMPARISON: [facility], CT, CT SINUS SCREEN WO CON, 04/02/2022, 15:48. FINDINGS: Image quality: Excellent. Maxillary Sinuses: Moderate bilateral polypoid mucosal thickening. Mild osseous demineralization again seen along the medial sinus simon. Ethmoid Air Cells: Diffuse partial opacification of the ethmoid air cells with there is of bony demineralization and remodeling similar to the prior CT. Sphenoid Sinuses: Moderate mucosal thickening in the posterior portions of the sphenoid sinuses. No bony remodeling or destruction. Frontal Sinuses: Mild mucosal thickening again seen at the inferomedial frontal sinuses. Ostiomeatal Complexes: Ostiomeatal complexes are partially opacified. No Torie cells. Miscellaneous: Visualized intra-orbital contents are normal. Right middle turbinate ricardo bullosa is seen that is better aerated on the current exam. Mild soft tissue material in the superior nasal cavity, decreased when compared to the prior exam. No paradoxical turbinate curvature. Leftward nasal septal deviation. IMPRESSION: 1. Diffuse paranasal sinus disease again seen with signs of chronic sinusitis. Overall, findings have mildly improved when compared to the CT from 04/02/2022. 2. Polypoid mucosal thickening is seen in the upper nasal cavity, decreased when compared to the prior exam. Approved by: Pawan Bernstein M.D. on 12/20/2024 at 20:55
== END ==
LOC: CT 14:34
PROVIDERS: PCP Family Medicine; Referring Provider Otolaryngology; Visit Provider Otolaryngology
DX: J32.4 Chronic pansinusitis (principal); J33.9 Nasal polyp, unspecified; R43.0 Anosmia
CPT/HCPCS: 70486